=== PATIENT | male | born 1980 | race Caucasian/White ===

== ENCOUNTER 2019-05-29 19:41 | Emergency (ER) | payer OTHER ==
--- NOTE | 2019-05-29 20:57 | EDM.PDOC ---
ED HPI GENERAL MEDICAL PROBLEM - General Chief Complaint: Neurological Problem Stated Complaint: CONFUSED NOT ACTING RIGHT Time Seen by Provider: 05/29/19 20:09 Source of Information: Reports: Patient, Family History Limitations: Reports: No Limitations - History of Present Illness INITIAL COMMENTS - FREE TEXT/NARRATIVE: This is a 39-year-old male. His brother brings him to the ER this evening because the brother states he is not acting right. The patient apparently is under a lot of stress and the nurse got from him that he is feeling out of sorts since yesterday. He does drink alcohol on a daily basis but does not appear to be intoxicated. When I begin talking to the patient asking him what is going on he would turn the question around and asked me what is going on. Finally he says I am scared because I think the devil is in me. When asked him why he thought that it was because women are lying to him. When I ask why women are lying to him he says he does not know. He noticed I had a cell phone and when he asked why I had a cell phone I said because it is my call phone everybody has a cell phone does not he? He said absolutely not because they can listen to what you are doing. I asked the patient why did his brother bring him in tonight. And that is because last night the patient had to get all of his guns out of his house and he threw them into his pickup and he started driving around and he threw his cell phone and his iPad out the window so they could not listen to what he was doing. Apparently his brother caught up with him and was chasing him for little while and then the patient stopped his truck and when he got out he tried to take a swing at his brother because he thought his brother was the devil. Patient clearly has a flight of ideas and he cannot finish his thoughts to a conclusion to give me any concrete answers. Not appear to be violent at this juncture. Is not able to give me a straight answer for anything that I ask. He denies any suicidal ideation and he denies any homicidal ideation. - Related Data Allergies Allergy/AdvReac Type Severity Reaction Status Date / Time amoxicillin Allergy Hives Verified 05/29/19 19:51 Home Meds: Home Meds . [No Known Home Meds] 05/29/19 [History] Past Medical History - Past Health History Medical/Surgical History: Denies Medical/Surgical History Social & Family History - Recreational Drug Use Recreational Drug Use: No ED ROS GENERAL - Review of Systems Review Of Systems: See Below Reason Not Obtained: the patient's acute psychosis - Physical Exam Exam: See Below Exam Limited By: Altered Mental Status General Appearance: Alert, WD/WN, No Apparent Distress Eye Exam: Bilateral Eye: Normal Inspection Ears: Normal External Exam Nose: Normal Inspection Throat/Mouth: Normal Inspection, Normal Lips, Normal Voice, No Airway Compromise Head Exam: Normocephalic Neck: Supple Respiratory/Chest: No Respiratory Distress, Lungs Clear, Normal Breath Sounds Cardiovascular: Regular Rate, Rhythm, No Murmur GI/Abdominal: Soft, Non-Tender Neuro Exam (Abbreviated): Alert, Oriented, Other (The patient has acute psychosis with delusional thinking and mild paranoia). No: Normal Cognition Back Exam: Normal Inspection, Full Range of Motion Extremities: Normal Inspection, Normal Range of Motion Psychiatric: Other (Flight of ideas or delusional thoughts) Skin Exam: Warm, Dry Course - Vital Signs Last Recorded V/S: Last Vital Signs Temp 99.7 F 05/29/19 19:51 Pulse 107 H 05/29/19 19:51 Resp BP 159/82 H 05/29/19 19:51 Pulse Ox 98 05/29/19 19:51 - Orders/Labs/Meds Labs: Laboratory Tests 05/29/19 05/29/19 05/29/19 Range/Units 21:26 21:26 21:26 WBC 7.49 (4.23-9.07) K/mm3 RBC 4.45 L (4.63-6.08) M/mm3 Hgb 13.0 L (13.7-17.5) gm/dl Hct 37.4 L (40.1-51.0) % MCV 84.0 (79.0-92.2) fl MCH 29.2 (25.7-32.2) pg MCHC 34.8 (32.2-35.5) g/dl RDW Std Deviation 36.5 (35.1-43.9) fL Plt Count 224 (163-337) K/mm3 MPV 9.4 (9.4-12.3) fl Neut % (Auto) 68.4 H (34.0-67.9) % Lymph % (Auto) 21.5 L (21.8-53.1) % Kay % (Auto) 9.6 (5.3-12.2) % Eos % (Auto) 0.1 L (0.8-7.0) Baso % (Auto) 0.1 (0.1-1.2) % Neut # (Auto) 5.12 (1.78-5.38) K/mm3 Lymph # (Auto) 1.61 (1.32-3.57) K/mm3 Kay # (Auto) 0.72 (0.30-0.82) K/mm3 Eos # (Auto) 0.01 L (0.04-0.54) K/mm3 Baso # (Auto) 0.01 (0.01-0.08) K/mm3 Sodium 136 (136-145) mEq/L Potassium 3.5 (3.5-5.1) mEq/L Chloride 103 (98-107) mEq/L Carbon Dioxide 23 (21-32) mEq/L Anion Gap 13.5 (5-15) BUN 20 H (7-18) mg/dL Creatinine 1.2 (0.7-1.3) mg/dL Est Cr Clr Drug Dosing 88.02 mL/min Estimated GFR (MDRD) > 60 (>60) mL/min BUN/Creatinine Ratio 16.7 (14-18) Glucose 121 H (74-106) mg/dL Calcium 8.5 (8.5-10.1) mg/dL Total Bilirubin 0.6 (0.2-1.0) mg/dL AST 144 H (15-37) U/L ALT 70 H (16-63) U/L Alkaline Phosphatase 70 (46-116) U/L Total Protein 6.8 (6.4-8.2) g/dl Albumin 3.9 (3.4-5.0) g/dl Globulin 2.9 gm/dL Albumin/Globulin Ratio 1.3 (1-2) Urine Color (Yellow) Urine Appearance (Clear) Urine pH (5.0-8.0) Ur Specific Gully (1.005-1.030) Urine Protein (Negative) Urine Glucose (UA) (Negative) Urine Ketones (Negative) Urine Occult Blood (Negative) Urine Nitrite (Negative) Urine Bilirubin (Negative) Urine Urobilinogen (0.2-1.0) Ur Leukocyte Esterase (Negative) Urine RBC (0-5) /hpf Urine WBC (0-5) /hpf Ur Squamous Epith Cells (0-5) /hpf Urine Bacteria (FEW) /hpf Urine Mucus (FEW) /hpf Salicylates (2.8-20) mg/dL Urine Opiates Screen (BNSTAK=133) Ur Buprenorphine Scrn (CUTOFF=10) Ur Oxycodone Screen (JQN7VN=650) Urine Methadone Screen (NCC9FL=718) Ur Propoxyphene Screen (RKKPSA=813) Acetaminophen (10-30) ug/mL Ur Barbiturates Screen (FTDPWE=118) Ur Tricyclics Screen (JNKASU=867) Ur Phencyclidine Scrn (CUTOFF=25) Ur Amphetamine Screen (JVBYEI=230) U Methamphetamines Scrn (XXEREM=577) U Benzodiazepines Scrn (BFHESZ=840) U Cocaine Metab Screen (OMSXWD=669) U Marijuana (THC) Screen (CUTOFF=50) Ethyl Alcohol 0.01 (0.00) gm% 05/29/19 05/29/19 05/29/19 Range/Units 21:26 21:26 21:56 WBC (4.23-9.07) K/mm3 RBC (4.63-6.08) M/mm3 Hgb (13.7-17.5) gm/dl Hct (40.1-51.0) % MCV (79.0-92.2) fl MCH (25.7-32.2) pg MCHC (32.2-35.5) g/dl RDW Std Deviation (35.1-43.9) fL Plt Count (163-337) K/mm3 MPV (9.4-12.3) fl Neut % (Auto) (34.0-67.9) % Lymph % (Auto) (21.8-53.1) % Kay % (Auto) (5.3-12.2) % Eos % (Auto) (0.8-7.0) Baso % (Auto) (0.1-1.2) % Neut # (Auto) (1.78-5.38) K/mm3 Lymph # (Auto) (1.32-3.57) K/mm3 Kay # (Auto) (0.30-0.82) K/mm3 Eos # (Auto) (0.04-0.54) K/mm3 Baso # (Auto) (0.01-0.08) K/mm3 Sodium (136-145) mEq/L Potassium (3.5-5.1) mEq/L Chloride (98-107) mEq/L Carbon Dioxide (21-32) mEq/L Anion Gap (5-15) BUN (7-18) mg/dL Creatinine (0.7-1.3) mg/dL Est Cr Clr Drug Dosing mL/min Estimated GFR (MDRD) (>60) mL/min BUN/Creatinine Ratio (14-18) Glucose (74-106) mg/dL Calcium (8.5-10.1) mg/dL Total Bilirubin (0.2-1.0) mg/dL AST (15-37) U/L ALT (16-63) U/L Alkaline Phosphatase (46-116) U/L Total Protein (6.4-8.2) g/dl Albumin (3.4-5.0) g/dl Globulin gm/dL Albumin/Globulin Ratio (1-2) Urine Color Light yellow (Yellow) Urine Appearance Clear (Clear) Urine pH 6.0 (5.0-8.0) Ur Specific Gully 1.020 (1.005-1.030) Urine Protein Negative (Negative) Urine Glucose (UA) Negative (Negative) Urine Ketones 2+ H (Negative) Urine Occult Blood Trace-lysed H (Negative) Urine Nitrite Positive H (Negative) Urine Bilirubin Negative (Negative) Urine Urobilinogen 0.2 (0.2-1.0) Ur Leukocyte Esterase Negative (Negative) Urine RBC 0-5 (0-5) /hpf Urine WBC 0-5 (0-5) /hpf Ur Squamous Epith Cells 0-5 (0-5) /hpf Urine Bacteria Few (FEW) /hpf Urine Mucus Few (FEW) /hpf Salicylates 1.0 L (2.8-20) mg/dL Urine Opiates Screen (ONYEIV=803) Ur Buprenorphine Scrn (CUTOFF=10) Ur Oxycodone Screen (IZA3IK=363) Urine Methadone Screen (EJJ4EH=213) Ur Propoxyphene Screen (JHBSFT=251) Acetaminophen 0 L (10-30) ug/mL Ur Barbiturates Screen (HMANDZ=327) Ur Tricyclics Screen (PEVKBK=782) Ur Phencyclidine Scrn (CUTOFF=25) Ur Amphetamine Screen (VEKHAU=682) U Methamphetamines Scrn (MCRFTD=590) U Benzodiazepines Scrn (ORMFRZ=844) U Cocaine Metab Screen (PKODVG=214) U Marijuana (THC) Screen (CUTOFF=50) Ethyl Alcohol (0.00) gm% 05/29/19 Range/Units 21:56 WBC (4.23-9.07) K/mm3 RBC (4.63-6.08) M/mm3 Hgb (13.7-17.5) gm/dl Hct (40.1-51.0) % MCV (79.0-92.2) fl MCH (25.7-32.2) pg MCHC (32.2-35.5) g/dl RDW Std Deviation (35.1-43.9) fL Plt Count (163-337) K/mm3 MPV (9.4-12.3) fl Neut % (Auto) (34.0-67.9) % Lymph % (Auto) (21.8-53.1) % Kay % (Auto) (5.3-12.2) % Eos % (Auto) (0.8-7.0) Baso % (Auto) (0.1-1.2) % Neut # (Auto) (1.78-5.38) K/mm3 Lymph # (Auto) (1.32-3.57) K/mm3 Kay # (Auto) (0.30-0.82) K/mm3 Eos # (Auto) (0.04-0.54) K/mm3 Baso # (Auto) (0.01-0.08) K/mm3 Sodium (136-145) mEq/L Potassium (3.5-5.1) mEq/L Chloride (98-107) mEq/L Carbon Dioxide (21-32) mEq/L Anion Gap (5-15) BUN (7-18) mg/dL Creatinine (0.7-1.3) mg/dL Est Cr Clr Drug Dosing mL/min Estimated GFR (MDRD) (>60) mL/min BUN/Creatinine Ratio (14-18) Glucose (74-106) mg/dL Calcium (8.5-10.1) mg/dL Total Bilirubin (0.2-1.0) mg/dL AST (15-37) U/L ALT (16-63) U/L Alkaline Phosphatase (46-116) U/L Total Protein (6.4-8.2) g/dl Albumin (3.4-5.0) g/dl Globulin gm/dL Albumin/Globulin Ratio (1-2) Urine Color (Yellow) Urine Appearance (Clear) Urine pH (5.0-8.0) Ur Specific Gully (1.005-1.030) Urine Protein (Negative) Urine Glucose (UA) (Negative) Urine Ketones (Negative) Urine Occult Blood (Negative) Urine Nitrite (Negative) Urine Bilirubin (Negative) Urine Urobilinogen (0.2-1.0) Ur Leukocyte Esterase (Negative) Urine RBC (0-5) /hpf Urine WBC (0-5) /hpf Ur Squamous Epith Cells (0-5) /hpf Urine Bacteria (FEW) /hpf Urine Mucus (FEW) /hpf Salicylates (2.8-20) mg/dL Urine Opiates Screen Negative (SHNLMW=563) Ur Buprenorphine Scrn Negative (CUTOFF=10) Ur Oxycodone Screen Negative (MDA9OZ=997) Urine Methadone Screen Negative (UZU7FU=202) Ur Propoxyphene Screen Negative (YNHGTL=124) Acetaminophen (10-30) ug/mL Ur Barbiturates Screen Negative (CSWMHY=662) Ur Tricyclics Screen Negative (IHILWN=166) Ur Phencyclidine Scrn Negative (CUTOFF=25) Ur Amphetamine Screen Negative (GNRFUK=075) U Methamphetamines Scrn Negative (FIBMDE=975) U Benzodiazepines Scrn Negative (AERQIL=538) U Cocaine Metab Screen Negative (XHVTGF=316) U Marijuana (THC) Screen Negative (CUTOFF=50) Ethyl Alcohol (0.00) gm% Meds: Medications Discontinued Medications Generic Name Dose Route Start Last Admin Trade Name Freq PRN Reason Stop Dose Admin Olanzapine 10 mg 05/30/19 00:48 05/30/19 01:20 Zyprexa PO 05/30/19 00:49 10 mg ONETIME ONE Administration - Re-Assessments/Exams Free Text/Narrative Re-Assessment/Exam: 05/29/19 21:11 When the lab went in to draw blood from the patient he told her to get the "fuck " out of the room, and my nurse was there as well and he told them both to get out of the room because they both had coronavirus. I believe he is acutely psychotic. When I went back into the room to ask him why he sent the ammunition assembly ii laborer away is because he says women lie. Additional history from the brother is that this patient has been acting this way for about 24 hours. The brother has been keeping hold of the patient to make certain that nothing happens to him and keeps him safe and he finally convinced the patient to come to the ER for evaluation today. The patient's brother also indicates that if he drinks a beer then he becomes very violent and angry and even more confused than he is now. 05/30/19 00:[address] [facility] psych unit and they have a male bed I spoke with Dr. Ambriz and he agrees to accept the patient in transport for further evaluation and treatment. I did go over all the labs and the drug screen with Dr. Ambriz. There is no history of head trauma he has no evidence of head trauma in the last [address] scan of the head is not medically warranted. We will attempt to give the patient some Zyprexa and hopefully he will take it without difficulty. I do know that he is a violent risk and therefore we will transfer him by the support coordinator's department in handcuffs once all the paperwork is filled out and he is excepted officially. 05/30/19 05:31 The patient got somewhat antsy decided to leave the ER even though we encouraged him not to and tried to take him back to his room. He walked out the front door and we had to call the police to come and grab him and bring him back to the ER. The support coordinator's department supposed to come and get him now and at least watch him here until they can find a transport for him or transport him immediately if they are able to. 05/30/19 05:34 The patient has been placed on a hold and a committal form has been filled out. 05/30/19 07:56 [facility] to [facility] in [facility] to the adult psych unit. Departure - Departure Time of Disposition: 05:32 Disposition: DC/Tfer to Acute Hospital 02 Condition: Fair Clinical Impression: Acute psychosis, Delusional disorder, Agitation - Discharge Information *PRESCRIPTION DRUG MONITORING PROGRAM REVIEWED*: Not Applicable *COPY OF PRESCRIPTION DRUG MONITORING REPORT IN PATIENT ARUN: Not Applicable Referrals: PCP,Not In Area [Primary Care Provider] - Sepsis Event Note - Evaluation Sepsis Screening Result: No Definite Risk - Focused Exam Vital Signs: Vital Signs Temp Pulse BP Pulse Ox 05/29/19 19:51 99.7 F 107 H 159/82 H 98 Date Exam was Performed: 05/30/19 Time Exam was Performed: 07:54 ED Communication - ED Communication Date/Time Date: 05/30/19 Time Called: 01:10 - Discussed Case With (1) Discussed Case With (1): Admitting Provider Person/s Notified (1): Dr. Ambriz (He will accept the patient in transport for further evaluation and treatment)
[2019-05-30] MEDS ORDERED: OLANZapine 5 MG Tab PO ONE (00:48)
== END 2019-05-30 07:00 ==
LOC: JD.ED 19:41
DX: F22 Delusional disorders (principal); F23 Brief psychotic disorder; Z88.1 Allergy status to other antibiotic agents
CPT/HCPCS: 36415; 80053; 80306; 80307; 81001; 85025; 99285; A9270